=== PATIENT | male | born 1985 | race Caucasian/White ===

== ENCOUNTER 2018-05-25 09:45 | Emergency (ER) | payer OTHER ==
[2018-05-25] MEDS ORDERED: METHOCARBAMOL 750 MG TABLET PO ONE (10:40)
[2018-05-25] MEDS ORDERED: OXYCODONE-ACETAMINOPHEN 5-325 MG TABLET PO ONE (10:40)
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
[2018-05-25 12:06] VITALS: BP 139/83
== END 2018-05-25 12:06 | disposition home or self-care (01) ==
LOC: ER 09:45
DX: M54.6 Pain in thoracic spine (principal); M54.2 Cervicalgia; V43.52XA Car driver injured in collision with other type car in traffic accident, initial encounter; F17.200 Nicotine dependence, unspecified, uncomplicated
CPT/HCPCS: 99284; 72125; 72128; J3490